=== PATIENT | male | born 1980 | race Caucasian/White ===

== ENCOUNTER 2018-09-17 19:04 | Emergency (ER) | payer OTHER ==
[~2018-09-17] VITALS: Ht 185.4 cm; Wt 88.5 kg
[2018-09-17] MEDS ORDERED: WELLBUTRIN 100100 MG PO (19:17)
[2018-09-17] MEDS ORDERED: ZANAFLEX2 MG PO (19:55)
[2018-09-17] MEDS ORDERED: IBUPROFEN 800800 M1 PO (19:55)
[2018-09-17 20:07] VITALS: BP 129/86
== END 2018-09-17 20:08 | disposition home or self-care (01) ==
LOC: M.ERS 19:04
DX: S06.0X0A Concussion without loss of consciousness, initial encounter (principal); S46.912A Strain of unspecified muscle, fascia and tendon at shoulder and upper arm level, left arm, initial encounter; V49.49XA Driver injured in collision with other motor vehicles in traffic accident, initial encounter; Y93.89 Activity, other specified; Y92.89 Other specified places as the place of occurrence of the external cause; Y99.8 Other external cause status